=== PATIENT | female | born 1995 | race African-American/Black ===

== ENCOUNTER 2019-02-18 20:41 | Emergency (ER) | payer BC ==
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
--- NOTE | 2019-02-19 07:59 | UC ---
- Progress Note Progress Note: Reviewed Dr. Richards's report of cervical spine: straightening of the cervical spine with mild degenerative disk disease. Wet read negative. No change in plan based on reading. Course/Dx - Diagnoses Provider Diagnoses: Neck muscle spasm Discharge ED - Sign-Out/Discharge Documenting (check all that apply): Post-Discharge Follow Up All imaging exams completed and their final reports reviewed: Yes - Discharge Plan Condition: Stable Disposition: HOME Prescriptions: Cyclobenzaprine TAB* [Flexeril 10 MG TAB*] 10 mg PO TID PRN #12 tab PRN Reason: Spasms Patient Education Materials: Muscle Spasm (ED) Forms: *Work Release Referrals: Jennifer Holder MD [Primary Care Provider] - Additional Instructions: If you develop a fever, shortness of breath, chest pain, new or worsening symptoms - please call your PCP or go to the ED immediately. - Billing Disposition and Condition Condition: STABLE Disposition: Home
== END 2019-02-18 21:25 | disposition home or self-care (01) ==
LOC: UCCORT 20:41
DX: M62.838 Other muscle spasm (principal); Z88.8 Allergy status to other drugs, medicaments and biological substances
CPT/HCPCS: 72050; 99202; G0463

== ENCOUNTER 2019-06-07 20:18 | Emergency (ER) | payer BC ==
[2019-06-07 20:31] VITALS: BP 140/62
--- NOTE | 2019-06-07 20:48 | UC ---
Abdominal Pain Female HPI - HPI Summary HPI Summary: C/O dull RLQ/ pelvic pain x 2 days. No fevers/ cramping or bleeding. , EDC 01/08/20 LMP 04/03/19 - History of Current Complaint Chief Complaint: UCAbdominalPain Stated Complaint: PAIN RIGHT LOWER ABDOMEN 9 WEEKS Hx Obtained From: Patient Hx Last Menstrual Period: 02/01/19 denies risk of ?: Yes - 9 weeks 2 day Onset/Duration: Gradual Onset Severity Initially: Mild Severity Currently: Mild Pain Intensity: 3 Location: Discrete At: RLQ - lower into the pelvis Radiates: No Character: Dull Aggravating Factor(s): Nothing Alleviating Factor(s): Nothing Associated Signs and Symptoms: Positive: Negative Simlar Episode/Dx as:: Cervical inflammation Allergies/Adverse Reactions: Allergies Allergy/AdvReac Type Severity Reaction Status Date / Time ibuprofen AdvReac leg Verified 06/07/19 20:28 swelling Home Medications: Home Medications Pnv No.95/Ferrous Fum/Folic AC [ Caplet] 1 cap PO DAILY 06/07/19 [ History Confirmed 06/07/19] PMH/Surg Hx/FS Hx/Imm Hx Previously Healthy: Yes - Surgical History Surgical History: None - Family History Known Family History: Positive: Hypertension, Diabetes - Social History Occupation: Employed Full-time Lives: Alone - with boyfriend Alcohol Use: None Substance Use Type: None Substance Use Comment - Amount & Last Used: occasional Smoking Status (MU): Never Smoked Tobacco Review of Systems All Other Systems Reviewed And Are Negative: Yes Gastrointestinal: Positive: Abdominal Pain Physical Exam Triage Information Reviewed: Yes Appearance: Well-Appearing, No Pain Distress, Obese Vital Signs: Initial Vital Signs Temp 98 F 06/07/19 20:28 Pulse 67 06/07/19 20:28 Resp 18 06/07/19 20:28 BP 140/62 06/07/19 20:28 Pulse Ox 100 06/07/19 20:28 Vital Signs Reviewed: Yes Eyes: Positive: Conjunctiva Clear ENT Exam: Normal Neck exam: Normal Respiratory Exam: Normal Cardiovascular Exam: Normal Abdomen Description: Negative: Nontender - Minimal tenderness just above the right iliac crest., McBurney's Point Tenderness, Peritoneal Signs Bowel Sounds: Positive: Present Musculoskeletal Exam: Normal Neurological Exam: Normal Psychological Exam: Normal Skin Exam: Normal Abd Pain Female Course/Dx - Differential Dx/Diagnosis Differential Diagnosis: Bowel Obstruction, Ectopic , Pelvic Inflammatory Disease, , Urinary Tract Infection Provider Diagnosis: Encounter for supervision of normal first , first trimester, Right lower quadrant abdominal pain Discharge ED - Sign-Out/Discharge Documenting (check all that apply): Patient Departure All imaging exams completed and their final reports reviewed: No Studies - Discharge Plan Condition: Stable Disposition: HOME Patient Education Materials: Abdominal Pain in (ED) Referrals: Jennifer Holder MD [Primary Care Provider] - Additional Instructions: If the pain is worse at all go to the ER. - Billing Disposition and Condition Condition: STABLE Disposition: Home
[2019-06-09 13:19] LABS: Chlamydia trachomatis NAA Negative (Negative); Neisseria gonorrhoeae (GC) NAA Negative (Negative)
== END 2019-06-07 21:13 | disposition home or self-care (01) ==
LOC: UCCORT 20:18
DX: O99.89 Other specified diseases and conditions complicating pregnancy, childbirth and the puerperium (principal); R10.31 Right lower quadrant pain; Z88.6 Allergy status to analgesic agent
CPT/HCPCS: 87491; 87591; 99211; G0463